=== PATIENT | male | born 1960 | race American Indian/Alaskan Native ===

== ENCOUNTER 2022-04-09 11:23 | Emergency (ER) | payer SELFPAY ==
--- NOTE | 2022-04-09 12:10 | Emergency Department Report ---
ED CPR HPI - General Chief Complaint: Cardiac Arrest/CPR Stated Complaint: CARDIAC ARREST Time Seen by Provider: 04/09/22 11:59 Source: EMS (Verbal report received from emergency medical services. EMS documentation not available at time of chart dictation ), RN notes reviewed Mode of arrival: Stretcher Limitations: Altered Mental Status, Physical Limitation - History of Present Illness Initial Comments: The patient was evaluated in the emergency department for symptoms described in the history of present illness. He/she was evaluated in the context of the global COVID-19 pandemic, which necessitated consideration that the patient might be at risk for infection with the virus that causes COVID-19. Institutional protocols and algorithms that pertain to the evaluation of patients at risk for COVID-19 are in a state of rapid change based on information released by regulatory bodies including the CDC and federal and state organizations. These policies and algorithms were followed during the patient's care in the emergency department. Please note that these policies, procedures and recommendations changed on a rapid basis. This is a 61-year-old gentleman. He is brought to the hospital by emergency medical services as an out of hospital cardiac arrest. Patient arrives with a GCS of 3, intubated with an 8 oh endotracheal tube by EMS, receiving active CPR. History obtained entirely from EMS. Patient reportedly on a lawnmower, riding, became unresponsive, and fell. It is not known if bystander CPR was started. EMS reports that they intubated the patient in the field. EMS reports that they defibrillated the patient 7 times in the field, as well as continued high- quality CPR, and gave epinephrine x2. In the emergency room, the patient receives a prolonged and aggressive resuscitation. He receives high-quality CPR, multiple rounds of epinephrine, sodium bicarbonate, calcium chloride, magnesium, and multiple defibrillations. We are not able to obtain a pulse or obtain a perfusing rhythm. Overdrive pacing is also attempted, for refractory ventricular fibrillation/tachycardia, and is not successful. Serial bedside ultrasounds do not demonstrate coordinated ventricular activity, and duplex Doppler interrogation of the arterial system shows no pulsatile waveform or appreciable pulse. After prolonged and exhaustive resuscitation, resuscitation efforts were terminated secondary to obvious signs of and medical futility. Patient's family subsequently informed. Complaint: stopped breathing -: minute(s) Place: home Shock Advised: Yes Number of Shocks Delivered: >3 Initial Findings in the Field: unresponsive, VTACH/VFIB Treatments Prior to Arrival: intubation, chest compressions, defribrillated shocks #, epinephrine mgs # - Related Data Allergies Allergy/AdvReac Type Severity Reaction Status Date / Time Unable to Assess Allergy Verified 04/09/22 11:41 ED Review of Systems ROS: Stated complaint: CARDIAC ARREST Other details as noted in HPI Comment: Unobtainable due to pts medical conditions ED Physical Exam - General Limitations: Altered Mental Status, Physical Limitation General appearance: alert, obtunded, obese - Head Head exam: Present: atraumatic, normocephalic - Eye Eye exam: Present: conjunctival injection. Absent: normal appearance (Pupils are dilated, do not react to light) - ENT ENT exam: Present: normal exam, mucous membranes moist, normal external ear exam (Endotracheal tube is noted in the mouth) - Neck Neck exam: Present: normal inspection - Respiratory Respiratory exam: Absent: normal lung sounds bilaterally (The patient is not breathing), respiratory distress - Cardiovascular Cardiovascular Exam: Present: other (Patient is pulseless). Absent: systolic murmur, diastolic murmur, rubs, gallop - GI/Abdominal GI/Abdominal exam: Present: soft. Absent: distended, tenderness, guarding, rebound, rigid - Rectal Rectal exam: Present: deferred - exam: Present: normal inspection External exam: Present: normal external exam - Extremities Exam Extremities exam: Present: normal inspection - Back Exam Back exam: Present: normal inspection - Neurological Exam Neurological exam: Present: altered, other (Nonverbal, GCS of 3T) - Psychiatric Psychiatric exam: Present: other (Patient is nonverbal) - Skin Skin exam: Present: warm, dry, intact, normal color. Absent: rash ED Medical Decision Making - Medical Decision Making Differential diagnosis, including not limited to: KS, CAD, pulmonary embolism, intracranial hemorrhage Critical Care Time: Yes Critical care time in (mins) excluding proc time.: 45 Critical care attestation.: If time is entered above; I have spent that time in minutes in the direct care of this critically ill patient, excluding procedure time. ED Disposition Clinical Impression: Cardiac arrest Disposition: 20 Is pt being admited?: No Does the pt Need Aspirin: No Condition: Undetermined
[2022-04-09] MEDS ORDERED: CALCIUM CHLORIDE 1,000 MG/10 ML SYRINGE IV ONE (14:09)
[2022-04-09] MEDS ORDERED: EPINEPHrine 30 MG/30 ML INJ IV ONE (14:09)
[2022-04-09] MEDS ORDERED: MAGNESIUM SULFATE 1 GM/2ML (4 MEQ/1ML) INJ ONE (14:09)
[2022-04-09] MEDS ORDERED: EPINEPHrine 1 MG/10 ML SYRINGE ONE (14:09)
[2022-04-09] MEDS ORDERED: LIDOCAINE PF 100 MG/5 ML (CARDIAC SYRINGE) IV ONE (14:09)
[2022-04-09] MEDS ORDERED: AMIODARONE 150 MG/3 ML INJ IV ONE (14:09)
[2022-04-09] MEDS ORDERED: SODIUM BICARB 8.4% 50 MEQ/50 ML SYRINGE IV ONE (14:09)
== END 2022-04-09 16:30 ==
LOC: EDBD → ED 11:23
DX: I46.9 Cardiac arrest, cause unspecified (principal)
CPT/HCPCS: 92950; 99291; J0171; J0282; J2001; J3475; J3490